=== PATIENT | female | born 1955 | race Caucasian/White ===

== ENCOUNTER 2025-03-30 13:21 | Emergency (ER) | payer OTHER, MEDICAID ==
[~2025-03-30] VITALS: Ht 167.6 cm; Wt 70.0 kg
[2025-03-30 13:27] VITALS: O2SAT 99
[2025-03-30 13:44] VITALS: BP 127/64; PULSE 66; RESP 18; TEMP 37.2; O2SAT 100
[2025-03-30] MEDS ORDERED: NAPR-1176 MT (14:48)
[2025-03-30] MEDS ORDERED: BO1 TP (14:48)
== END 2025-03-30 18:07 | disposition home or self-care (01) ==
LOC: ER 13:21
DX: M25.561 Pain in right knee (principal); L30.9 Dermatitis, unspecified; Z79.1 Long term (current) use of non-steroidal anti-inflammatories (NSAID); Z79.899 Other long term (current) drug therapy
CPT/HCPCS: 73562; 99283

== ENCOUNTER 2025-05-25 13:38 | Emergency (ER) | payer OTHER, MEDICAID ==
[~2025-05-25] VITALS: Ht 167.6 cm; Wt 82.0 kg
[~2025-05-25 13:38] MED LIST: BO1 TP; NAPR-1176 MT
[2025-05-25 13:49] VITALS: O2SAT 99
[2025-05-25 19:49] VITALS: BP 162/71; PULSE 59; RESP 16; TEMP 36.7; O2SAT 100
[2025-05-25] MEDS ORDERED: OXYC-662 MT (19:50)
== END 2025-05-25 20:10 | disposition home or self-care (01) ==
LOC: ER 13:52
DX: M25.461 Effusion, right knee (principal); Z79.1 Long term (current) use of non-steroidal anti-inflammatories (NSAID); Z79.899 Other long term (current) drug therapy
CPT/HCPCS: 93971; 99284

== ENCOUNTER 2025-07-20 16:28 | Emergency (ER) | payer OTHER ==
[~2025-07-20] VITALS: Ht 160 cm; Wt 67.0 kg
[~2025-07-20 16:28] MED LIST changes: +OXYC-662 MT
[2025-07-20 17:04] VITALS: O2SAT 98
[2025-07-20 20:48] LABS: INFLUENZA TYPE A Presumptive Negative (Pres. Neg.); INFLUENZA TYPE B Presumptive Negative (Pres. Neg.)
[2025-07-20] MEDS ORDERED: GUAI600T26 MT (21:06)
[2025-07-20] MEDS ORDERED: ACET-2708 MT (21:06)
[2025-07-20 21:26] VITALS: BP 137/59; PULSE 62; RESP 14; TEMP 37.1; O2SAT 99
== END 2025-07-20 21:29 | disposition home or self-care (01) ==
LOC: ER 16:28
DX: B34.9 Viral infection, unspecified (principal); I10 Essential (primary) hypertension; Z20.822 Contact with and (suspected) exposure to COVID-19; Z79.899 Other long term (current) drug therapy
CPT/HCPCS: 71045; 87426; 87804; 99284